=== PATIENT | female | born 1990 | race Two or more races ===

== ENCOUNTER → 2016-10-21 | Outpatient (CLI) | payer OTHER ==
[2016-10-21 08:17] LABS: Basophils # (auto) 0 uL; Basophils % (auto) 0.4 % (0.0-2.0); CONDITION Y; Eosinophils # (auto) 0.1 uL; Eosinophils % (auto) 0.7 % (0.0-7.0); Hemoglobin 11.9 g/dL (12.2-16.2); Lymphocytes # (auto) 1.7 uL; Lymphocytes % (auto) 17.5 % (10.0-50.0); Mean Corpuscular Hemoglobin 30.6 pg (28.0-32.0); Mean Corpuscular Hgb Conc. 33.2 g/dL (32.0-36.0); Mean Corpuscular Volume 92.3 fL (80.0-100.0); Mean Platelet Volume 7.4 fL (7.4-10.4); Monocytes # (auto) 0.6 uL; Neutrophils # (auto) 7.2 uL; Neutrophils % (auto) 75.4 % (37.0-80.0); Platelet Count (auto) 345 10^3/uL (140-450); Red Cell Distribution Width 14.3 % (11.6-16.0); White Blood Cell 9.6 10^3/uL (4.4-10.8)
== END | disposition home or self-care (01) ==
LOC: LAB 07:34
PROVIDERS: ATTEND Obstetrics & Gynecology
DX: Z34.80 Encounter for supervision of other normal pregnancy, unspecified trimester (principal); O99.810 Abnormal glucose complicating pregnancy
CPT/HCPCS: 36415; 82951; 85025

== ENCOUNTER 2016-11-13 16:15 | Observation (INO) | payer OTHER | END 2016-11-13 19:51 | disposition home or self-care (01) | DRG 781 | LOC: LDRP 16:15 | PROVIDERS: ADMIT Specialist; ATTEND Specialist | DX: O26.893 Other specified pregnancy related conditions, third trimester (principal); R10.2 Pelvic and perineal pain; R10.9 Unspecified abdominal pain; Z3A.30 30 weeks gestation of pregnancy | CPT/HCPCS: 59025; 76818; 81002; 82948; G0378 ==

== ENCOUNTER 2016-11-17 12:25 | Observation (INO) | payer OTHER | END 2016-11-17 13:25 | disposition home or self-care (01) | DRG 781 | LOC: LDRP 12:25 | PROVIDERS: ADMIT Specialist; ATTEND Specialist | DX: O24.419 Gestational diabetes mellitus in pregnancy, unspecified control (principal); Z3A.30 30 weeks gestation of pregnancy | CPT/HCPCS: 59025; 76818; 81002; G0378 ==

== ENCOUNTER 2016-11-21 15:45 | Observation (INO) | payer OTHER | END 2016-11-21 16:50 | disposition home or self-care (01) | DRG 781 | LOC: LDRP 15:45 | PROVIDERS: ADMIT Specialist; ATTEND Specialist | DX: O24.419 Gestational diabetes mellitus in pregnancy, unspecified control (principal); O62.9 Abnormality of forces of labor, unspecified; Z3A.31 31 weeks gestation of pregnancy | CPT/HCPCS: 59025; 76818; 81002; 82948; 82962; G0378 ==

== ENCOUNTER 2016-11-24 07:55 | Observation (INO) | payer OTHER | END 2016-11-24 10:00 | disposition home or self-care (01) | DRG 781 | LOC: LDRP 07:55 | PROVIDERS: ADMIT Specialist; ATTEND Specialist | DX: O24.419 Gestational diabetes mellitus in pregnancy, unspecified control (principal); O62.9 Abnormality of forces of labor, unspecified; Z3A.31 31 weeks gestation of pregnancy | CPT/HCPCS: 59025; 76818; 81002; G0378 ==

== ENCOUNTER 2016-11-27 13:56 | Observation (INO) | payer OTHER | END 2016-11-27 15:52 | disposition home or self-care (01) | DRG 781 | LOC: LDRP 13:56 | PROVIDERS: ADMIT Obstetrics & Gynecology; ATTEND Obstetrics & Gynecology | DX: O24.419 Gestational diabetes mellitus in pregnancy, unspecified control (principal); O26.893 Other specified pregnancy related conditions, third trimester; M54.9 Dorsalgia, unspecified; R10.9 Unspecified abdominal pain; R11.0 Nausea; Z3A.32 32 weeks gestation of pregnancy | CPT/HCPCS: 59025; 76805; 81002; G0378 ==

== ENCOUNTER 2016-12-01 15:06 | Observation (INO) | payer OTHER ==
[2016-12-01] MEDS ORDERED: ASPI81CH43 GT (16:39)
[2016-12-01] MEDS ORDERED: PREN-96 PO (16:39)
[2016-12-04] MEDS ORDERED: PREN-153 OR (11:25)
[2016-12-04] MEDS ORDERED: ASPI81CH43 GT (11:25)
== END 2016-12-01 17:45 | disposition home or self-care (01) | DRG 781 ==
LOC: LDRP 15:06
PROVIDERS: ADMIT Specialist; ATTEND Specialist
DX: O24.419 Gestational diabetes mellitus in pregnancy, unspecified control (principal); Z3A.32 32 weeks gestation of pregnancy
CPT/HCPCS: 59025; 76818; 81002; 82962; G0378

== ENCOUNTER 2016-12-10 10:15 | Observation (INO) | payer OTHER ==
[~2016-12-10] VITALS: Ht 162.6 cm; Wt 81.2 kg
[~2016-12-10 10:15] MED LIST: ASPI81CH43 GT; PREN-153 OR; PREN-96 PO
[2016-12-10] MEDS ORDERED: NIFEdipine 10 MG CAP ONE (12:12)
[2016-12-10] MEDS ORDERED: NIFEdipine 10 MG CAP PO ONE (12:15)
== END 2016-12-10 12:55 | disposition home or self-care (01) | DRG 781 ==
LOC: LDRP 10:15
PROVIDERS: ADMIT Specialist; ATTEND Specialist
DX: O24.419 Gestational diabetes mellitus in pregnancy, unspecified control (principal); O60.03 Preterm labor without delivery, third trimester; Z3A.34 34 weeks gestation of pregnancy
CPT/HCPCS: 59025; 76818; 81002; G0378

== ENCOUNTER 2016-12-15 15:50 | Observation (INO) | payer OTHER ==
[2016-12-15] MEDS ORDERED: NIF10C GT (17:23)
== END 2016-12-15 17:10 | disposition home or self-care (01) | DRG 781 ==
LOC: LDRP 15:50
PROVIDERS: ADMIT Obstetrics & Gynecology; ATTEND Obstetrics & Gynecology
DX: O26.893 Other specified pregnancy related conditions, third trimester (principal); Z3A.34 34 weeks gestation of pregnancy
CPT/HCPCS: 59025; 76818; 81002; G0378

== ENCOUNTER 2016-12-22 19:03 | Observation (INO) | payer OTHER | END 2016-12-22 20:50 | disposition home or self-care (01) | DRG 781 | LOC: LDRP 19:03 | PROVIDERS: ADMIT Obstetrics & Gynecology; ATTEND Obstetrics & Gynecology | DX: O24.419 Gestational diabetes mellitus in pregnancy, unspecified control (principal); Z3A.35 35 weeks gestation of pregnancy | CPT/HCPCS: 59025; 76818; 81002; G0378 ==

== ENCOUNTER → 2016-12-22 | Outpatient (CLI) | payer OTHER ==
[~2016-12-22] MED LIST changes: +NIF10C GT; -PREN-153 OR
[2016-12-22 11:37] LABS: Basophils # (auto) 0.1 uL; Basophils % (auto) 0.8 % (0.0-2.0); CONDITION Y; Eosinophils # (auto) 0 uL; Eosinophils % (auto) 0.4 % (0.0-7.0); Hematocrit 35.3 % (36.0-46.0); Hemoglobin 11.9 g/dL (12.2-16.2); Lymphocytes # (auto) 1.6 uL; Lymphocytes % (auto) 17.3 % (10.0-50.0); Mean Corpuscular Hemoglobin 29.9 pg (28.0-32.0); Mean Corpuscular Hgb Conc. 33.6 g/dL (32.0-36.0); Mean Corpuscular Volume 89.1 fL (80.0-100.0); Mean Platelet Volume 7.3 fL (7.4-10.4); Monocytes # (auto) 0.6 uL; Neutrophils # (auto) 6.9 uL; Neutrophils % (auto) 74.5 % (37.0-80.0); Platelet Count (auto) 362 10^3/uL (140-450); Red Cell Distribution Width 13.8 % (11.6-16.0); White Blood Cell 9.2 10^3/uL (4.4-10.8)
== END | disposition home or self-care (01) ==
LOC: LAB 11:14
PROVIDERS: ATTEND Specialist
DX: Z11.3 Encounter for screening for infections with a predominantly sexual mode of transmission (principal)
CPT/HCPCS: 36415; 85025; 86592

== ENCOUNTER 2016-12-25 13:00 | Observation (INO) | payer OTHER | END 2016-12-25 15:00 | disposition home or self-care (01) | DRG 781 | LOC: LDRP 13:00 | PROVIDERS: ADMIT Obstetrics & Gynecology; ATTEND Obstetrics & Gynecology | DX: O24.419 Gestational diabetes mellitus in pregnancy, unspecified control (principal); Z3A.36 36 weeks gestation of pregnancy | CPT/HCPCS: 59025; 76818; 81002; G0378 ==